=== PATIENT | female | born 1945 | race Caucasian/White ===

== ENCOUNTER → 2024-04-13 09:34 | Outpatient (REF) | payer MEDICARE, OTHER, SELFPAY | LOC: HWRAD 09:34 | PROVIDERS: ATTENDING PHYSICIAN Internal Medicine Critical Care Medicine; FAMILY PHYSICIAN Family Medicine | DX: J18.9 Pneumonia, unspecified organism (principal) | CPT/HCPCS: 71046 ==

== ENCOUNTER → 2024-08-10 10:37 | Outpatient (REF) | payer MEDICARE, OTHER, SELFPAY | LOC: HWRCS 10:37 | PROVIDERS: ATTENDING PHYSICIAN Internal Medicine Critical Care Medicine; FAMILY PHYSICIAN Family Medicine | DX: J47.9 Bronchiectasis, uncomplicated (principal); R09.02 Hypoxemia | CPT/HCPCS: 71250; 93306 ==

== ENCOUNTER → 2024-08-24 08:05 | Outpatient (REF) | payer MEDICARE, OTHER, SELFPAY ==
[2024-08-24 11:03] LABS: Glycohemoglobin (HgbA1c) 6.9 % (4.0-5.6)
[2024-08-24 11:20] LABS: ALT (SGPT) 10 U/L (0-35); AST (SGOT) 15 U/L (14-36); Albumin 3.6 g/dl (3.5-5.0); Alkaline Phosphatase 88 U/L (38-126); Blood Urea Nitrogen 22 mg/dl (7-17); Calcium 8.9 mg/dl (8.4-10.2); Carbon Dioxide 35 mmol/L (22-30); Chloride 94 mmol/L (98-107); Glucose 154 mg/dl (70-99); Potassium 3.8 mmol/L (3.5-5.1); Sodium 138 mmol/L (135-145); Total Bilirubin 0.6 mg/dl (0.2-1.3); Total Protein 6.4 g/dl (6.3-8.2); eGFR > 60.00
== END ==
LOC: HWLAB 08:05
PROVIDERS: ATTENDING PHYSICIAN Internal Medicine Endocrinology, Diabetes & Metabolism; FAMILY PHYSICIAN Family Medicine
DX: E11.9 Type 2 diabetes mellitus without complications (principal)
CPT/HCPCS: 36415; 80053; 83036

== ENCOUNTER 2024-09-21 22:28 | Inpatient (IN) | payer MEDICARE, OTHER, SELFPAY ==
--- NOTE | 2024-09-21 15:47 | ED.GENMED ---
ED Provider Triage
<Robert Ferrer PA-C - Last Filed: 09/21/24 15:48>
-
Patient seen by provider in Triage?: Seen in Triage
Attestation: A medical screening examination has been initiated by a qualified medical provider. Based on the assessment performed at this time, it has been determined that an emergent medical condition may exist and the patient has been informed
that further medical evaluation and possible additional diagnostic testing may be needed.
HPI: 78-year-old female with history of COPD has home oxygen but does not always use it now requiring 3 L. Family noticed increased work of breathing shortness of breath fatigue and generalized weakness. She notes general body aches as well not
anticoagulated temperature is 100.7
Putting labs for CBC CMP BNP x-ray and test for COVID and flu
GENERAL: Alert , in no apparent distress
EYE: No visual abnormalities.
NECK: Trachea midline
ENT: No visible abnormalities.
LUNGS: No acute respiratory distress
NEUROLOGICAL: Alert and oriented
SKIN: Skin intact. No visible changes.
MUSCULOSKELETAL: Moving extremities normally
PSYCH: Normal and appropriate interaction.
This is a medical evaluation conducted in person to initiate diagnostic evaluation and provide initial therapeutics. Please see further documentation by the treating clinician.
History of Present Illness
<Robert Ferrer PA-C - Last Filed: 09/21/24 15:48>
General
Chief Complaint: Breathing Problem
Time Seen by Provider: 09/21/24 19:12
<Jim Pollack MD - Last Filed: 09/22/24 02:57>
General
Source: patient
Exam Limitations: none
Nursing documentation reviewed up to this point in time: agreed with
History of Present Illness
History of Present Illness:
Patient with history of COPD, who utilizes oxygen during any exertional activities at home, presents to ED from home secondary to increased work of breathing along with confusion, noted by her when he came back home this afternoon. Spouse
states that she was at her baseline health when he left the house 3 hours prior. Patient does have chronic cough as well as frequent pneumonia hospitalization. Upon arrival, patient is found to be febrile, which patient and spouse were not aware
of. Denies nausea or vomiting. Denies diarrhea. Denies chest pain. Denies headache. Denies dizziness. Denies sore throat. Denies recent change in medications or diet. Denies recent travel or surgery. Denies back pain.
Past History
<Robert Ferrer PA-C - Last Filed: 09/21/24 15:48>
Past History
ED Past Medical History: Asthma, COPD, HTN, NIDDM and Other (pneumonia)
ED Past Surgical History: Other (lap band bariatric surgery)
Patient has exhibited threatening behavior?: No
Social History
Tobacco: Non-smoker
Alcohol: None
Personal:
Living: with family
Employment: Not employed
Family History
Family History: Diabetes
Review of Systems
<Jim Pollack MD - Last Filed: 09/22/24 02:57>
Review of Systems
Allergies reviewed?: Yes
All Other Systems: ROS reviewed and negative except as documented in HPI and ROS
Constitutional: Reports fever
EENT: Reports no symptoms
Respiratory: Reports cough and trouble breathing
Cardiac: Reports no symptoms; Denies chest pain
ABD/GI: Reports no symptoms; Denies vomiting or diarrhea
: Reports no symptoms
Musculoskeletal: Reports no symptoms
Skin: Reports no symptoms
Neurological: Reports no symptoms
Phy Exam
<Jim Pollack MD - Last Filed: 09/22/24 02:57>
Physical Exam
Physical Exam:
Physical Exam
General: mild distress, not acutely ill. afebrile
Head: nc/at. eomi
Neck: supple. normal range of motion.
Heart: s1/s2 regular rate and rhythm, no murmur. equal radial pulses.
Lungs: mild respiratory distress. diffuse wheezing bilaterally
Abdomen: normal bowel sounds. not tender.
Neuro: alert and oriented x 3. no focal neurological deficits
Skin: no rash
Psychiatric: well kept. interactive and cooperative
Extremities: no edema. no calf tenderness.
Scores
<Jim Pollack MD - Last Filed: 09/22/24 02:57>
Heart Failure Risk
Heart Failure Risk Score: Not Applicable
Course
<Robert Ferrer PA-C - Last Filed: 09/21/24 15:48>
Orders/Labs/Results
Orders:
Orders
09/21/24 15:46
CR Chest - 2 Views Urgent
Comment:
Reason For Exam: sob
09/21/24 15:47
Electrocardiogram (*1) Urgent
Reason for Study: Shortness of Breath
EKG- Treatment ONCE
09/21/24 15:59
COVID-19 Antigen Urgent
Source: Nasal Swab
Complete Blood Count/With Diff Urgent
Comprehensive Metabolic Panel Urgent
Magnesium Urgent
Comment: ADD ON
NT-proBNP Urgent
Influenza A+B Rapid Molecular Urgent
[place] Source: Nasal Swab
Specimen Description:
09/21/24 19:42
0.9% Sodium Chloride 500 ml [Nss] 500 ml IV BOLUS
Acetaminophen [Tylenol] 650 mg PO NOW STA
Dexamethasone Sod Phosphate [Decadron] 6 mg IV NOW STA
Ipratropium/Albuterol Sulfate [Duoneb] 3 ml INH R NOW STA
09/21/24 19:43
Add On- LAB Urgent
Tests Added?: magnesium
09/21/24 19:49
Lactate Level [Lactic Acid] Urgent
Blood Culture Q30M
[place] Source: Blood/Venous
Specimen Description:
Blood Culture Q30M
[place] Source: Blood/Venous
Specimen Description:
09/21/24 19:58
Arterial Blood Gas Urgent
%Oxygen/Room Air: 89
09/21/24 19:59
Azithromycin 500 mg/250 ml [Zithromax Infusion] 500 mg in 250 ml IV NOW
CefTRIAXone [Rocephin] 1,000 mg IV NOW STA
09/21/24 20:22
Sterile Water [Sterile Water For Injection] 10 ml .ROUTE .STK-MED ONE
09/21/24 21:20
Albuterol Sulfate [Albuterol Sulfate Inhalant Solution] See Protocol INH R ONCE STA
Dosage in mg/hr: 10 mg/hr (2 mL/hr)
Duration of continuous nebulizer in hours: 4
Total dose delivered in m mg
Volume of Albuterol to add to nebulizer: 8 mL
Add saline for total nebulizer volume of: 100 mL
09/21/24 21:23
Admit/Transfer Patient As Directed
Co-Sign Provider:
Level of Care: Inpatient admission
Assign to:: IMU- Intermediate Care
Physician / Group: hospitalist
Diagnosis: acute respiratory distress
Reason for Hospitalization: pneumonia with respiratory distress
Expected length of stay greater than two midnights?: Yes
ELOS- Estimated Length of Stay in days: 2
I certify the patient meets the requirements for IP care: Yes
PRN Pain Medication Management As Directed
May give lesser potent ordered pain med per pt: Yes
preference::
Protocol:: Medication orders for pain may be administered in a
manner that supports deferring to patient preference
when the pt is:
- Requesting an ordered lesser potent pain medication.
Least to most potent pain medications are defined
as: acetaminophen < NSAID < tramadol < opioids
(morphine, oxycodone, hydromorphone).
- Requesting a lesser dose of the same medication IF
ORDERED.
- Requesting a less intrusive route of administration
if both routes are prescribed by the provider (PO <
IV).
Cpap [RESP] Urgent
Patient to use own unit?: No
Set Pressure (cm H2O): 8
Oxygen Liter Flow: 4
09/21/24 21:25
Code Status As Directed
Resuscitation Status: Full Code
09/21/24 22:00
Flush (0.9% Sodium Chloride) [Flush (Nss)] See Dose Instructions IV PER PROTOCOL
Abnormal Lab Results
09/21/24 09/21/24
15:59 19:58
WBC 26.0 H 10^3/uL
(4.8-10.8)
Hgb 11.3 L g/dL
(12.0-16.0)
Hct 35.8 L %
(37.0-47.0)
MCH 26.0 L pg
(27.0-31.0)
MCHC 31.6 L g/dL
(33.0-37.0)
Abs Immat Gran (auto) 0.2 H 10^3/uL
(0-0.05)
Absolute Neuts (auto) 23.7 H 10^3/uL
(1.4-6.5)
Absolute Monos (auto) 0.8 H 10^3/uL
(0.1-0.6)
Immature Gran % 0.7 H %
(0-0.5)
Neutrophils % 91.2 H %
(42.2-75.2)
Lymphocytes % 4.8 L %
(20.5-51.1)
pCO2 41 H mmHg
(32-35)
pO2 117 H mmHg
(83-108)
HCO3 28.5 H mmol/L
(21-28)
ABG O2 Sat (Measured) 98.2 H %
(94-98)
Sodium 133 L mmol/L
(135-145)
Chloride 94 L mmol/L
(98-107)
BUN 26 H mg/dl
(7-17)
Glucose 170 H mg/dl
(70-99)
09/21/24 15:59
09/21/24 15:59
Vital Signs
Initial and Last Documented VS:
Initial Vital Signs
Temp Pulse Resp Pulse Ox
100.7 F H 115 18 96
09/21/24 15:45 09/21/24 15:45 09/21/24 15:45 09/21/24 15:45
Last Documented Vital Signs
Temp Pulse Resp BP Pulse Ox
100.7 F H 105 15 98/55 99
09/21/24 15:45 09/22/24 01:45 09/22/24 01:45 09/22/24 00:01 09/22/24 01:30
<Jim Pollack MD - Last Filed: 09/22/24 02:57>
Orders/Labs/Results
Orders:
Orders
09/21/24 15:46
CR Chest - 2 Views Urgent
Comment:
Reason For Exam: sob
09/21/24 15:47
Electrocardiogram (*1) Urgent
Reason for Study: Shortness of Breath
EKG- Treatment ONCE
09/21/24 15:59
COVID-19 Antigen Urgent
Source: Nasal Swab
Complete Blood Count/With Diff Urgent
Comprehensive Metabolic Panel Urgent
Magnesium Urgent
Comment: ADD ON
NT-proBNP Urgent
Influenza A+B Rapid Molecular Urgent
[place] Source: Nasal Swab
Specimen Description:
09/21/24 19:42
0.9% Sodium Chloride 500 ml [Nss] 500 ml IV BOLUS
Acetaminophen [Tylenol] 650 mg PO NOW STA
Dexamethasone Sod Phosphate [Decadron] 6 mg IV NOW STA
Ipratropium/Albuterol Sulfate [Duoneb] 3 ml INH R NOW STA
09/21/24 19:43
Add On- LAB Urgent
Tests Added?: magnesium
09/21/24 19:49
Lactate Level [Lactic Acid] Urgent
Blood Culture Q30M
[place] Source: Blood/Venous
Specimen Description:
Blood Culture Q30M
[place] Source: Blood/Venous
Specimen Description:
09/21/24 19:58
Arterial Blood Gas Urgent
%Oxygen/Room Air: 89
09/21/24 19:59
Azithromycin 500 mg/250 ml [Zithromax Infusion] 500 mg in 250 ml IV NOW
CefTRIAXone [Rocephin] 1,000 mg IV NOW STA
09/21/24 20:22
Sterile Water [Sterile Water For Injection] 10 ml .ROUTE .STK-MED ONE
09/21/24 21:20
Albuterol Sulfate [Albuterol Sulfate Inhalant Solution] See Protocol INH R ONCE STA
Dosage in mg/hr: 10 mg/hr (2 mL/hr)
Duration of continuous nebulizer in hours: 4
Total dose delivered in m mg
Volume of Albuterol to add to nebulizer: 8 mL
Add saline for total nebulizer volume of: 100 mL
09/21/24 21:23
Admit/Transfer Patient As Directed
Co-Sign Provider:
Level of Care: Inpatient admission
Assign to:: IMU- Intermediate Care
Physician / Group: hospitalist
Diagnosis: acute respiratory distress
Reason for Hospitalization: pneumonia with respiratory distress
Expected length of stay greater than two midnights?: Yes
ELOS- Estimated Length of Stay in days: 2
I certify the patient meets the requirements for IP care: Yes
PRN Pain Medication Management As Directed
May give lesser potent ordered pain med per pt: Yes
preference::
Protocol:: Medication orders for pain may be administered in a
manner that supports deferring to patient preference
when the pt is:
- Requesting an ordered lesser potent pain medication.
Least to most potent pain medications are defined
as: acetaminophen < NSAID < tramadol < opioids
(morphine, oxycodone, hydromorphone).
- Requesting a lesser dose of the same medication IF
ORDERED.
- Requesting a less intrusive route of administration
if both routes are prescribed by the provider (PO <
IV).
Cpap [RESP] Urgent
Patient to use own unit?: No
Set Pressure (cm H2O): 8
Oxygen Liter Flow: 4
09/21/24 21:25
Code Status As Directed
Resuscitation Status: Full Code
09/21/24 22:00
Flush (0.9% Sodium Chloride) [Flush (Nss)] See Dose Instructions IV PER PROTOCOL
Abnormal Lab Results
09/21/24 09/21/24
15:59 19:58
WBC 26.0 H 10^3/uL
(4.8-10.8)
Hgb 11.3 L g/dL
(12.0-16.0)
Hct 35.8 L %
(37.0-47.0)
MCH 26.0 L pg
(27.0-31.0)
MCHC 31.6 L g/dL
(33.0-37.0)
Abs Immat Gran (auto) 0.2 H 10^3/uL
(0-0.05)
Absolute Neuts (auto) 23.7 H 10^3/uL
(1.4-6.5)
Absolute Monos (auto) 0.8 H 10^3/uL
(0.1-0.6)
Immature Gran % 0.7 H %
(0-0.5)
Neutrophils % 91.2 H %
(42.2-75.2)
Lymphocytes % 4.8 L %
(20.5-51.1)
pCO2 41 H mmHg
(32-35)
pO2 117 H mmHg
(83-108)
HCO3 28.5 H mmol/L
(21-28)
ABG O2 Sat (Measured) 98.2 H %
(94-98)
Sodium 133 L mmol/L
(135-145)
Chloride 94 L mmol/L
(98-107)
BUN 26 H mg/dl
(7-17)
Glucose 170 H mg/dl
(70-99)
09/21/24 15:59
09/21/24 15:59
Vital Signs
Initial and Last Documented VS:
Initial Vital Signs
Temp Pulse Resp Pulse Ox
100.7 F H 115 18 96
09/21/24 15:45 09/21/24 15:45 09/21/24 15:45 09/21/24 15:45
Last Documented Vital Signs
Temp Pulse Resp BP Pulse Ox
100.7 F H 105 15 98/55 99
09/21/24 15:45 09/22/24 01:45 09/22/24 01:45 09/22/24 00:01 09/22/24 01:30
<Jim Pollack MD - Last Filed: 09/22/24 02:57>
MDM/Problems Addressed
MDM/Problems Addressed:
History, exam, and chest x-ray concerning for sepsis secondary to pneumonia. In light of patient's mental status change, difficulty exclude potential hypercapnia. As such, earlier blood gas ordered.
Antibiotics ordered. Blood culture pending. COVID and flu negative.
<Jim Pollack MD - Last Filed: 09/22/24 02:57>
*Critical Care Note
Total Time (30-74mins, 75-104mins- exclusive of procedures): Not Applicable
ED Attending Note
<Robert Ferrer PA-C - Last Filed: 09/21/24 15:48>
-
Portions of this chart may have been created with voice recognition software.� Occasional wrong word or��sound alike� substitutions may have occurred due to the inherent limitations of voice recognition software.
Discharge Plan
Departure
Patient Disposition: Admit
Date of Disposition: 09/21/24
Time of Disposition: 20:05
Admit to: Telemetry
Presentation/result/management discussed w/ accepting MD/DO: Hospitalist
Discharge Problem:
Sepsis, Pneumonia
Interventions
Interventions:
*Risk Screen - Suicide Last Done: 09/21/24 15:47
*General Assessment Last Done: 09/22/24 00:51
*Neglect/Abuse Screening Last Done: 09/21/24 15:47
ED- Fall Risk Assessment Last Done: 09/22/24 01:50
ED- Cardiac Assessment Last Done: 09/21/24 19:30
ED- Pulmonary Assessment Last Done: 09/21/24 19:30
[2024-09-21 16:21] LABS: Hematocrit 35.8 % (37.0-47.0); Hemoglobin 11.3 g/dL (12.0-16.0); Mean Corp Hgb Conc. 31.6 g/dL (33.0-37.0); Mean Corpuscular Volume 82.5 fL (81.0-99.0); Mean Platelet Volume 8.4 fL (7.4-10.4); Platelet Count 334 10^3/uL (130-400); Red Blood Cell Count 4.34 10^6/uL (4.20-5.40); Red Cell Dist. Width 13.8 % (11.5-14.5)
[2024-09-21 16:38] LABS: % Basophils 0.2 % (0-2); % Eosinophils 0.1 % (0-6); % Immature Granulocytes 0.7 % (0-0.5); % Lymphocytes 4.8 % (20.5-51.1); % Neutrophils 91.2 % (42.2-75.2); Absolute Basophils 0.1 10^3/uL (0-0.2); Absolute Immature Granulocytes 0.2 10^3/uL (0-0.05); Absolute Lymphocytes 1.2 10^3/uL (1.2-3.4); Absolute Monocytes 0.8 10^3/uL (0.1-0.6); Absolute Neutrophils 23.7 10^3/uL (1.4-6.5); Nucleated Red Blood Cells % 0 %
[2024-09-21 16:41] LABS: ALT (SGPT) 12 U/L (0-35); AST (SGOT) 19 U/L (14-36); Albumin 3.9 g/dl (3.5-5.0); Alkaline Phosphatase 97 U/L (38-126); Blood Urea Nitrogen 26 mg/dl (7-17); Calcium 8.8 mg/dl (8.4-10.2); Carbon Dioxide 30 mmol/L (22-30); Chloride 94 mmol/L (98-107); Glucose 170 mg/dl (70-99); Potassium 4.1 mmol/L (3.5-5.1); Sodium 133 mmol/L (135-145); Total Bilirubin 0.9 mg/dl (0.2-1.3); Total Protein 6.8 g/dl (6.3-8.2); eGFR > 60.00
[2024-09-21 16:46] LABS: COVID-19 Antigen Negative (Negative)
[2024-09-21 16:49] LABS: NT-proBNP 449 pg/ml
[2024-09-21 19:25] VITALS: BP 119/59
[2024-09-21 20:00] VITALS: BP 117/48
[2024-09-21 20:03] LABS: B.E. 4.1 mmol/L; HCO3 28.5 mmol/L (21-28); O2 Saturation % 98.2 % (94-98); PCO2 41 mmHg (32-35); PO2 117 mmHg (83-108); pH 7.45 (7.35-7.45)
[2024-09-21 20:11] VITALS: BP 135/56
[2024-09-21 20:14] LABS: Magnesium 1.7 mg/dl (1.6-2.3)
[2024-09-21 20:29] LABS: Lactic Acid 1.5 mmol/L (0.7-2.0)
[2024-09-21] MEDS: DECADRON 6 MG IV (20:35)
[2024-09-21] MEDS: TYLENOL 650 MG PO (20:35)
[2024-09-21] MEDS: DUONEB 3 ML INH (20:35)
[2024-09-21] MEDS: ROCEPHIN 1000 MG IV (20:36)
[2024-09-21] MEDS: ZITHROMAX INFUSION 250 IV (20:36)
[2024-09-21] MEDS: NSS 500 IV (20:36)
[2024-09-21 21:01] VITALS: BP 164/104
--- NOTE | 2024-09-21 21:03 | HPS.HSE ---
Family Physician
-
Family Physician: Stacia Rodgers
Chief Complaint
-
Shortness of breath
History of Present Illness
This is a 78-year-old female with past medical history of asthma on intermittent home O2, diabetes, hypertension, history of cervical cancer, sleep apnea on CPAP, prior admissions for Klebsiella pneumonia as well as strep pneumonia presenting to the
emergency department with acute worsening shortness of breath.
Per family patient been in usual state of health up on 2 today. Family noticed increased work of breathing, shortness of breath and fatigue as well as generalized weakness. She was not coughing. She reports generalized bodyaches.
No known sick contacts. Appears to have a Tmax of 100.7 at home.
Patient unable to give much additional history. No history of DVT PE, no recent travels or prolonged immobilization.
In the emergency department patient had a temp of report 7. Low blood pressure readings have been taking. She was tachycardic to 115. She is satting 96% on 3 L. ECG shows sinus tachycardia without any acute ST or T wave changes. Chest x-ray
shows a right lower lobe infiltrate. COVID test negative, influenza test negative, white count was 26, hemoglobin and platelets were normal. ABG shows a pH of 7.45, pCO2 41 and a bicarb of 28. Electrolytes were unremarkable. BUN/creatinine was
stable.
Medical History
Past Medical History
Past Medical History: Reports Asthma, Cancer (History of cervical cancer), HTN, NIDDM and Other (Sleep apnea on CPAP daytime at night)
Past Surgical History: Reports Other
Additional Past Surgical History:
Surgical History hysterectomy
Surgical History R/L KNEE SURGERY
Surgical History BACK PAIN SURGERY METAL PLATE
Surgical History TUMMY TUCK
Surgical History gastic bypass
Surgical History [place] lap band removal 11/2020
Social History
Tobacco: Non-smoker
Alcohol: None
Drug: None
Personal:
Living: With Family
Family History
Family History: Not pertinent
Allergies / Home Medications
Allergies reflects when Allergies were last updated in [facility].
Home Medications with original date entered in [facility]
Allergy/Medication List:
Allergies
Allergy/AdvReac Type Severity Reaction Status Date / Time
lorazepam AdvReac Unknown Verified 09/21/24 15:47
environmental Allergy triggers Uncoded 09/21/24 15:47
asthma
red dots Allergy redness Uncoded 09/21/24 15:47
Home Medications
guaifenesin 1,200 mg tablet, extended release 12 hr (Mucinex) 1,200 mg PO Q12H Congestion 10/29/15
montelukast 10 mg tablet 10 mg PO QPM Allergies 10/29/15
multivitamin with folic acid 400 mcg tablet (Tab-A-Mariah) 1 tab PO DAILY Supplement 08/07/16
omeprazole 20 mg-sodium bicarbonate 1.1 gram capsule (Zegerid) 1 cap PO DAILY Gastrointestinal issue 08/07/16
losartan 50 mg tablet 100 mg PO DAILY Blood pressure 05/10/17
L.acidoph,paracasei,B.animalis 10 billion cell capsule 1 ea PO BID Supplement 07/01/19
aspirin 81 mg tablet,delayed release (Adult Aspirin Regimen) 81 mg PO DAILY Blood clot prevention/tx 07/01/19
benzonatate 100 mg capsule 100 mg PO TIDPRN PRN cough 07/01/19
cinnamon bark 500 mg capsule (Cinnamon) 1,000 mg PO BID Supplement 07/01/19
insulin detemir U-100 100 unit/mL (3 mL) subcutaneous pen (Levemir FlexTouch U-100 Insulin) 12 unit SC DAILY Diabetes 07/01/19
oxybutynin chloride 10 mg tablet,extended release 24 hr (Ditropan XL) 15 mg PO DAILY Urinary issue 07/01/19
budesonide 0.5 mg/2 mL suspension for nebulization (Pulmicort) 0.5 mg IH BID Lung/breathing issues 11/06/20
calcium 250 mg (as phosphate)-vit D3 5 mcg (200 unit) chewable tablet 1 ea PO BID Supplement 11/06/20
hydrochlorothiazide 25 mg tablet 25 mg PO DAILY Blood pressure 11/07/20
hydrocodone 5 mg-acetaminophen 325 mg tablet 0.5 tab PO BIDPRN PRN back pain 11/07/20
umeclidinium 62.5 mcg/actuation blister powder for inhalation (Incruse Ellipta) 62.5 mcg inhalation DAILY Lung/breathing issues 11/07/20
albuterol sulfate 1.25 mg/3 mL solution for nebulization 1.25 mg (3 mL) inhalation TID ##1 11/09/20
cefdinir 300 mg capsule 300 mg PO Q12 #14 caps 11/09/20
insulin aspart U-100 100 unit/mL (3 mL) subcutaneous pen (Novolog FlexPen U-100 Insulin aspart) 0 units (0 mL) SC AC 11/09/20
prednisone 10 mg tablet 10 mg PO .TAPER #100 tabs 11/09/20
Review of Systems
-
Unable to obtain full review of systems at this time due to: Acuity
Physical Exam
Vital Signs
Vital Signs
Temp Pulse Resp Pulse Ox
100.7 F H 115 18 96
09/21/24 15:45 09/21/24 15:45 09/21/24 15:45 09/21/24 15:45
Physical Exam
General: Well Developed, Well Nourished and Respiratory Distress
HEENT: NormoCephalic, Anicteric, Moist mucous membranes, Atraumatic, PERRLA and Oxygen
Respiratory: Wheezes and Accessory Resp Muscle Use
Cardiac: S1/S2, Regular Rhythm and Tachycardia
Breast: Deferred by me
GI: Soft, Non Tender, Non Distended and Normal Bowel Sounds
Rectal: Deferred by Provider
Genito-urinary: Deferred by me
Musculoskeletal: No Clubbing, No Cyanosis and No Edema
Skin: Warm
Neuro: AO x 3
Psych: Calm
Laboratory Results
-
09/21/24 15:59
09/21/24 15:59
Laboratory Results
pH 7.45 (7.35-7.45) 09/21/24 19:58
pCO2 41 mmHg (32-35) H 09/21/24 19:58
pO2 117 mmHg (83-108) H 09/21/24 19:58
HCO3 28.5 mmol/L (21-28) H 09/21/24 19:58
Lactic Acid 1.5 mmol/L (0.7-2.0) 09/21/24 19:49
Total Bilirubin 0.9 mg/dl (0.2-1.3) 09/21/24 15:59
AST 19 U/L (14-36) 09/21/24 15:59
ALT 12 U/L (0-35) 09/21/24 15:59
Alkaline Phosphatase 97 U/L (38-126) 09/21/24 15:59
Data Reviewed
-
Diagnostic Radiology: Image Personally Visualized and interpreted
Medical Tests (Nuc Med, Echo, EKG etc): Image Personally Visualized and interpreted
Lab Data: Labs Reviewed by me
Old Records: Reviewed
Impression/Plan
-
IMPRESSION:
78 y.o female with h/o asthma presenting to ED with shortness of breath, found to be hypoxic, has RLL PNA and leukocytosis, Fever to 100.7. C/W pneumonia with respiratory failure and asthmatic bronchitis
PLAN:
1. PNA - High risk of decompensation, high work of breathing
- admit to IMU
- blood cultures sent (h/o klebsiella, strep pneumo)
- check urine strep and legionella ag
- check sputum cx
- IV ceftriaxone/azithromycin
- supplemental oxygen
2. Asthma exacerbation/asthmatic bronchitis
- abx as above
- continous nebs x 1
- albuterol 2 prn
- solumedrol 40 q 6
- pulmonary consult
continuue cpap routine
3. DM II -
- sliding scale insulin
- lantus 10 hs
4 HTN
- hold hctz
- continue losatan
DVT PPX lovenox sq
Code status - full code
--- NOTE | 2024-09-21 21:11 | EDRN ---
When this RN was in another pt.'s room administering blood transfusion, admitting came to this RN, reporting that pt. had self-removed her IV. Assisting RN to bedside, applied bandage.
[2024-09-21 21:34] VITALS: BP 110/56
[2024-09-21 22:00] VITALS: BP 95/57
[2024-09-21] MEDS: [UNRECOGNIZED DRUG - OTHER] 10 MG INH (22:34)
[2024-09-22] VITALS (12 sets, daily range): BP systolic 98–166; BP diastolic 55–77; PULSE 88–123; O2SAT 87; BMI 32.8; BMI 31.3
[2024-09-22 05:01] LABS: Blood Urea Nitrogen 27 mg/dl (7-17); Calcium 8.7 mg/dl (8.4-10.2); Carbon Dioxide 25 mmol/L (22-30); Chloride 98 mmol/L (98-107); Estimated Creatinine Clearance 53 ml/min; Glucose 304 mg/dl (70-99); Potassium 3.8 mmol/L (3.5-5.1); Sodium 137 mmol/L (135-145); eGFR > 60.00
[2024-09-22 05:11] LABS: Hematocrit 33.8 % (37.0-47.0); Hemoglobin 10.9 g/dL (12.0-16.0); Mean Corp Hgb Conc. 32.2 g/dL (33.0-37.0); Mean Corpuscular Hgb 26.3 pg (27.0-31.0); Mean Corpuscular Volume 81.6 fL (81.0-99.0); Mean Platelet Volume 8.6 fL (7.4-10.4); Platelet Count 238 10^3/uL (130-400); Red Blood Cell Count 4.14 10^6/uL (4.20-5.40); Red Cell Dist. Width 14.1 % (11.5-14.5); White Blood Cell Count 23.9 10^3/uL (4.8-10.8)
[2024-09-22] MEDS: SOLU-MEDROL PF 40 MG IV ×2 (06:16→11:54)
[2024-09-22] MEDS: SPIRIVA RESPIMAT 2.5 MCG 2 PUFF INH (07:11)
[2024-09-22] MEDS: COZAAR 100 MG PO (09:04)
[2024-09-22] MEDS: PROTONIX 40 MG PO (09:05)
[2024-09-22] MEDS: DITROPAN 5 MG PO ×3 (09:05→21:00)
[2024-09-22] MEDS: ASPIR LOW (ENTERIC COATED) 81 MG PO (09:05)
--- NOTE | 2024-09-22 09:06 | CON.PUL ---
Consultation
Consultation Request
Date/Time Consultation Requested: 09/22/2024334
Date/Time Consultation Performed: 09/22/2024854
Requesting Provider: Dr. Crouch
Performing Provider: Dr. Wang
Reason for Consultation: SOB/Hypoxia
Medical History
-
Chief Complaint: SOB + weakness
History of Present Illness:
78-year-old female non-smoker with a past medical history of asthma, recurrent pneumonia, hiatal hernia, history of DARIAN noncompliant with CPAP, ILD with bronchiectasis and patchy GGO, bilateral pulmonary nodules, history of laparoscopic gastric
banding s/p removal in November 2020 at [facility], personal history of COVID-19 (03/2022) s/p Paxlovid, GERD, DM type II, history of hayfever and hypertension who presents with shortness of breath and weakness. Patient was in her usual state of health up
until the morning of ER arrival and she had worsened shortness of breath, work of breathing and fatigue. She was not coughing although she did have generalized bodyaches. In the ER she was febrile to 100.7 �F, tachycardic to 115 bpm, breathing at
18 breaths/min, BP 119/59 and saturating 96% on 3 L/min. Initial labs were significant for leukocytosis to 26, Hb 11.3, serum sodium 133, proBNP 449, COVID antigen negative and flu swab also negative. CXR showed a right lower lobe opacification
with concern for loculated small pleural effusion versus atelectasis. She was given Tylenol, Decadron, DuoNebs, ceftriaxone/Zithromax and IVF with 500 cc of NS 0.9%. She was admitted to the IMU and pulmonary service consulted for additional
management/recommendations.
When I saw her she was resting in bed, on 3 L/min, saturating 97% with heart rate 104 and BP 155/78. She currently says her cough and shortness of breath are at baseline. She currently denies shortness of breath at rest. Also denies chest pain,
BRITO, nausea, fevers or chills. She says she has been having knee pain on both legs off and on for the last month, and it has been also happening for the last 2 days although she currently says it is currently resolved.
Patient follows with us in the [facility] office with last visit on 07/06/[address] Chi -last visit on 07/06/2024. She is on Incruse elliptica, budesonide twice a day, Singulair and albuterol. She previously had used vest therapy due to history
of bronchiectasis but had not been compliant with this. Has a history of recurrent pneumonia with history of Klebsiella pneumonia and streptococcal pneumonia. Also has a history of suspected chronic aspiration and was previously related to her
Lap-Band which has subsequently been removed in November 2020 at [facility]. She does have a history of DARIAN which was severe however she had lost about 60 pounds after her lap-band surgery and repeat home sleep study was negative. She
had been noncompliant with CPAP since July 2021, regardless. She is on nocturnal oxygen and 6 MWT showed she does not need O2 during the day. She was told to follow-up with our office in September 2024. She did have a CT chest ordered from "[facility], completed on 08/10/2024 showing slightly worsened right lower lobe bronchial wall thickening with mild traction bronchiectasis (also in RML), with stable bronchial thickening in the upper lobes with no significant change in
scattered/confluent regions of mild interlobular and intralobular interstitial thickening and GGO. Also multiple stable small pulmonary nodules and a large hiatal hernia, worsened compared to prior CT Chest in May 2020.
PMHx: Moderate persistent asthma, recurrent pneumonia with suspected chronic aspiration, chronic rhinitis, DARIAN noncompliant with CPAP since July 2021, ILD with stable bronchiectasis and patchy GGO, history of laparoscopic gastric banding s/p
removal in November 2020 at [facility], personal history of COVID-19 (March 2022) s/p Paxlovid, GERD, DM type II on insulin, history of cervical cancer, hypertension, hayfever and left hand arthritis
PSHx: Hysterectomy, right knee surgery, back surgery s/p metal plate, tummy tuck, gastric bypass, laparoscopic Lap-Band removal (11/2020)
Past Medical History
Past Medical History: Other (Above as per HPI)
Past Surgical History: Other (Above as per HPI)
Social History
Tobacco: Non-smoker
Alcohol: None
Drug: None
Personal:
Living: With Family
Family History
Family History: Diabetes (Mother), Hypertension (Father + sister) and Other (Father: Asthma)
Allergies / Home Medications
Allergies
Allergy/AdvReac Type Severity Reaction Status Date / Time
lorazepam AdvReac Unknown Verified 09/21/24 15:47
environmental Allergy triggers Uncoded 09/21/24 15:47
asthma
red dots Allergy redness Uncoded 09/21/24 15:47
Home Medications
�Medication �Instructions �Recorded �Confirmed �Last Taken �Type
guaifenesin 1,200 mg tablet, 1,200 mg PO Q12H Congestion 10/29/15 11/06/20 05/10/17 History
extended release 12 hr (Mucinex)
montelukast 10 mg tablet 10 mg PO QPM Allergies 10/29/15 11/06/20 05/09/17 History
multivitamin with folic acid 400 1 tab PO DAILY Supplement 08/07/16 11/06/20 05/09/17 History
mcg tablet (Tab-A-Mariah)
omeprazole 20 mg-sodium 1 cap PO DAILY Gastrointestinal 08/07/16 11/06/20 05/09/17 History
bicarbonate 1.1 gram capsule issue
(Zegerid)
losartan 50 mg tablet 100 mg PO DAILY Blood pressure 05/10/17 11/06/20 05/10/17 History
L.acidoph,paracasei,B.animalis 10 1 ea PO BID Supplement 07/01/19 11/06/20 Unknown History
billion cell capsule
aspirin 81 mg tablet,delayed 81 mg PO DAILY Blood clot 07/01/19 11/06/20 Unknown History
release (Adult Aspirin Regimen) prevention/tx
benzonatate 100 mg capsule 100 mg PO TIDPRN PRN cough 07/01/19 11/06/20 Unknown History
cinnamon bark 500 mg capsule 1,000 mg PO BID Supplement 07/01/19 11/06/20 Unknown History
(Cinnamon)
insulin detemir U-100 100 unit/mL 12 unit SC DAILY Diabetes 07/01/19 11/06/20 Unknown History
(3 mL) subcutaneous pen (Levemir
FlexTouch U-100 Insulin)
oxybutynin chloride 10 mg 15 mg PO DAILY Urinary issue 07/01/19 11/06/20 Unknown History
tablet,extended release 24 hr
(Ditropan XL)
budesonide 0.5 mg/2 mL suspension 0.5 mg IH BID Lung/breathing issues 11/06/20 11/07/20 Unknown History
for nebulization (Pulmicort)
calcium 250 mg (as phosphate)-vit 1 ea PO BID Supplement 11/06/20 11/06/20 Unknown History
D3 5 mcg (200 unit) chewable tablet
hydrochlorothiazide 25 mg tablet 25 mg PO DAILY Blood pressure 11/07/20 11/07/20 Unknown History
hydrocodone 5 mg-acetaminophen 325 0.5 tab PO BIDPRN PRN back pain 11/07/20 11/07/20 Unknown History
mg tablet
umeclidinium 62.5 mcg/actuation 62.5 mcg inhalation DAILY 11/07/20 11/07/20 Unknown History
blister powder for inhalation Lung/breathing issues
(Incruse Ellipta)
albuterol sulfate 1.25 mg/3 mL 1.25 mg (3 mL) inhalation TID ##1 11/09/20 Unknown Rx
solution for nebulization
cefdinir 300 mg capsule 300 mg PO Q12 #14 caps 11/09/20 Unknown Rx
insulin aspart U-100 100 unit/mL 0 units SC AC 11/09/20 Unknown Rx
(3 mL) subcutaneous pen (Novolog
FlexPen U-100 Insulin aspart)
prednisone 10 mg tablet 10 mg PO .TAPER #100 tabs 11/09/20 Unknown Rx
Review of Systems
-
History Source: Patient
All other systems: Negative unless noted
Vitals / Labs / Diagnostic Testing
Vital Signs
Temp Pulse Resp BP Pulse Ox
100.7 F H 108 24 156/77 99
09/21/24 15:45 09/22/24 07:16 09/22/24 07:16 09/22/24 06:45 09/22/24 07:18
Lab Data
09/22/24 04:30
09/22/24 04:30
Laboratory Results
09/21/24
19:58
pH 7.45
pCO2 41 H
pO2 117 H
HCO3 28.5 H
O2 Delivery Level
Microbiology
09/22/24 04:30 Urine Legionella Urinary Antigen - Final
Negative for Legionella pneumophila Serogroup 1 antigen.
A negative result does not rule out the possiblity of
Legionella infection due to other serogroups or species of
Legionella. Clinical correlation is recommended.
09/22/24 04:30 Urine Streptococcus pneumoniae Antigen (M - Final
Negative for Streptococcus pneumoniae antigen.
A negative result does not exclude infection with
Streptococcus pneumoniae. Clinical correlation is
recommended.
09/21/24 15:59 Nasal Swab Influenza Types A & B (BREN) - Final
Negative for Influenza A & B, NAAT
Negative results must be combined with clinical observations
and patient history.
Nucleic Acid Amplification test (NAAT)performed on the
[employer] platform.
Diagnostic Testing:
Physical Exam
-
HEENT: Normocephalic and Anicteric
Cardiovascular: S1/S2 and Peripheral Edema (negative)
Respiratory: Wheeze (negative), Rales (Right base), Rhonchi (negative) and Non-Labored Respirations
GI: Soft, Non Distended, Non Tender and Normal Bowel Sounds
Neurology: AO x 3 and Tremors (negative)
Skin: Warm and Dry
General: Respiratory Distress (negative), Comfortable, Fever (negative) and Chills (negative)
Assessment
-
Assessment: 78-year-old female non-smoker with a past medical history of asthma, recurrent pneumonia, hiatal hernia, history of DARIAN noncompliant with CPAP, ILD with bronchiectasis and patchy GGO, bilateral pulmonary nodules, history of laparoscopic
gastric banding s/p removal in November 2020 at [facility], personal history of COVID-19 (03/2022) s/p Paxlovid, GERD, DM type II, history of hayfever and hypertension who presents with shortness of breath and weakness. Patient was in her usual state of
health up until the morning of ER arrival and she had worsened shortness of breath, work of breathing and fatigue. She was not coughing although she did have generalized bodyaches. In the ER she was febrile to 100.7 �F, tachycardic to 115 bpm,
breathing at 18 breaths/min, BP 119/59 and saturating 96% on 3 L/min. Initial labs were significant for leukocytosis to 26, Hb 11.3, serum sodium 133, proBNP 449, COVID antigen negative and flu swab also negative. CXR showed a right lower lobe
opacification with concern for loculated small pleural effusion versus atelectasis. She was given Tylenol, Decadron, DuoNebs, ceftriaxone/Zithromax and IVF with 500 cc of NS 0.9%. She was admitted to the IMU and pulmonary service consulted for
additional management/recommendations.
Chronic conditions PERSONAL DEVELOPMENT COACH: Moderate persistent asthma, recurrent pneumonia with suspected chronic aspiration, chronic rhinitis, DARIAN noncompliant with CPAP since July 2021, ILD with stable bronchiectasis and patchy GGO, history of laparoscopic
gastric banding s/p removal in November 2020 at [facility], personal history of COVID-19 (March 2022) s/p Paxlovid, GERD, DM type II on insulin, history of cervical cancer, hypertension, hayfever and left hand arthritis
Impression:
#Acute respiratory failure with hypoxia due to CAP involving RML
#Acute asthma exacerbation due to above
#Leukocytosis
#Chronic anemia (has been anemic since 2007 with baseline Hb 9.5�11.5)
#DM type II c/b hyperglycemia
#Moderate sized hiatal hernia
#History of ILD with traction bronchiectasis and RML/RLL with bilateral patchy GGO
#Recurrent pneumonia with suspected chronic aspiration
#History of laparoscopic gastric banding s/p removal in November 2020 at [facility]
#Personal history of COVID-19 (03/2022) s/p Paxlovid
#GERD
#History of a fever
Plan:
- CXR shows a bandlike opacification in the right lower lobe, appears to be atelectasis to me, however differential also includes pneumonia versus pleural effusion
- CT chest obtained showing a consolidative opacity with bronchiectasis in the right middle lobe likely representing pneumonia --> would repeat imaging in 4-6 weeks to follow to resolution
- Continue broad-spectrum antibiotics, currently on ceftriaxone/Zithromax
- Follow-up blood cultures collected 09/21/2024 + respiratory culture checked today
- Trend WBC and monitor fever curve
- She takes Anoro at home however given her SOB and acute exacerbation, will hold long active inhalers and start Duonebs + budesonide; can resume Incruse upon discharge
- Change prn albuterol to prn DuoNebs fpr breakthrough symptoms
- Maintain SpO2 >90-94% with supplemental O2 and wean as tolerated --> check ambulatory pulse oximetry prior to discharge
- Incentive spirometer encouraged q1hr while awake
- Given her history of asthma with suspected exacerbation, continue with systemic steroids and wean as she clinically improves, currently on Solu-Medrol 40 mg IV q6hr
- While on high-dose steroids, maintain euglycemia with goal BG >100 and <180
- Mucolytics as needed, currently denies any difficulty expectorating and says her SOB + cough are at baseline
- Replete electrolytes with K>4, Mg>2
- Trend H/H and transfuse if needed to keep Hb>7g/dL; keep plt>20k, unless there is concern for bleeding then keep plt>50k
- DVT ppx: LMWH
Pulmonary service will continue to follow along. Will continue to follow-up with pulmonary office with Dr. Chi -last visit on 07/06/2024 with next visit arrange for 12/01/2024. Will move this appointment up given her acute exacerbation.
Data:
CXR 09/21/2024:
Probable small loculated right pleural effusion. New. This would better be evaluated by chest CT examination if indicated clinically.
CT chest without contrast 09/22/2024:
There is a new consolidation and bronchiectasis within the right middle lobe favored to represent pneumonia. Recommend follow-up to ensure resolution.
There are multifocal areas of groundglass opacities as well as numerous scattered solid nodules which appear overall similar to prior.
Moderate compression deformity of the T6 vertebral body with 3 mm retropulsion, unchanged from prior.
Moderate hiatal hernia.
Total time spent today was 57 minutes for this encounter. Time includes reviewing laboratory test/imaging results, reviewing pertinent medical records, obtaining and reviewing medical history, performing an appropriate exam, ordering medications,
tests and procedures. Time also includes documentation of this encounter, coordinating patient care and communicating with other healthcare professionals. Total time does not include separately billed tests performed on this date of service.
[2024-09-22 09:36] LABS: Glucose - Point of Care 296 mg/dl (70-99)
[2024-09-22] MEDS: LANTUS 0.12 UNITS SC (09:37)
[2024-09-22] MEDS: NOVOLOG FLEXPEN-MODERATE RESISTANCE 5 UNITS SC (09:40)
[2024-09-22] MEDS: VENTOLIN NEBULES 2.5 MG INH (10:32)
[2024-09-22] MEDS: DUONEB INH (11:07)
[2024-09-22 13:32] LABS: Glucose - Point of Care 195 mg/dl (70-99)
[2024-09-22] MEDS: NOVOLOG FLEXPEN-MODERATE RESISTANCE 1 UNITS SC (13:32)
[2024-09-22] MEDS: DUONEB 3 ML INH ×2 (14:23→19:16)
--- NOTE | 2024-09-22 14:30 | W.PN.HOSP.TC ---
Today's Communication/Plan
-
Continue antibiotics
Reduce dose of steroids
CT chest
Acapella
Incentive spirometer
Assessment / Plan
Assessment / Plan
Gen-AAOx3, NAD
HEENT-NC, AT, anicteric, clear oral mm
Neck-supple
CV-reg, no M, +S1/S2
Lungs-bilateral expiratory wheezing
Abd-soft, NT, ND
Ext-no edema
Musculoskeletal-no cyanosis, clubbing, no effusion crepitus or tenderness over knees bilaterally
Skin-warm and dry
Neuro-grossly non-focal
Psych-calm, cooperative
Acute TME -likely due to sepsis, possible pneumonia. Mental status improving.
Sepsis due to community-acquired pneumonia -hemodynamically stable. Blood cultures pending. Continue current antibiotics. Check CT chest to evaluate for infiltrate and possible pleural effusion given limited findings on chest x-ray. Chest x-ray
shows a probable small loculated right pleural effusion.
Acute on chronic hypoxic respiratory failure -baseline 3 L nasal cannula oxygen at home. She does not appear to use it consistently according to what she reports to me. Currently stable on 3 L. Etiology of acute respiratory failure likely due to
sepsis, pneumonia, COPD exacerbation.
Acute COPD exacerbation -suspect due to pneumonia. Continue nebs, oxygen, steroids. Add Acapella, incentive spirometer.
Hyponatremia -present on admission. Resolved.
DM2 with hyperglycemia -steroid-induced hyperglycemia noted. Hemoglobin A1c 6.9% in August. At home she is on Tresiba 12 units daily, aspart insulin sliding scale.
In the hospital she is on glargine 12 units daily, moderate resistance NovoLog scale.
Essential hypertension -stable.
DARIAN
History of cervical cancer
Normocytic anemia -likely chronic. Follow-up as outpatient.
Obesity due to excess calories
Full code
Anticipated Discharge: > 48 hours
Subjective/Interval History
-
Date of Service: September 22, 2024
Patient seen and examined. Feeling better. Denies shortness of breath. Complaining of bilateral knee pain.
Objective Data
-
Labs:
Laboratory Results
09/22/24
04:30
WBC 23.9 H
Hgb 10.9 L
Hct 33.8 L
Plt Count 238 D
Sodium 137
Potassium 3.8
Chloride 98
Carbon Dioxide 25
BUN 27 H
Creatinine 0.8
Glucose 304 H
Calcium 8.7
Vital Signs:
Vital Signs
Temp Pulse Resp BP Pulse Ox
98.1 F 103 22 115/59 97
09/22/24 10:30 09/22/24 14:26 09/22/24 14:26 09/22/24 10:30 09/22/24 14:26
I&O
09/21/24 09/22/24 09/23/24
06:59 06:59 06:59
Output Total 700 / 700
Balance -700 / -700
Review of Systems
-
History Source: Patient
All other systems: Reviewed and negative
--- NOTE | 2024-09-22 17:07 | PTCARENOTE ---
1645 Pt received from the ED via stretcher. Pt ambulated from stretcher to standing scale and the to bed with assist of 1. Personal items and call light within reach. Pt oriented to staff and call light system. All needs met.
[2024-09-22 17:40] LABS: Glucose - Point of Care 236 mg/dl (70-99)
[2024-09-22] MEDS: SINGULAIR 10 MG PO (17:57)
[2024-09-22] MEDS: LOVENOX 40 MG SC (18:02)
[2024-09-22] MEDS: NOVOLOG FLEXPEN-MODERATE RESISTANCE 3 UNITS SC (18:31)
[2024-09-22] MEDS: PULMICORT 0.5 MG INH (19:16)
[2024-09-22] MEDS: ROCEPHIN 1000 MG IV (20:40)
[2024-09-22] MEDS: STERILE WATER FOR INJECTION 10 ML IV (20:40)
[2024-09-22] MEDS: ZITHROMAX INFUSION 250 IV (20:55)
[2024-09-22 22:06] LABS: Glucose - Point of Care 259 mg/dl (70-99)
[2024-09-23] VITALS (7 sets, daily range): BP systolic 126–151; BP diastolic 73–85; PULSE 111
[2024-09-23 07:09] LABS: Hematocrit 32.8 % (37.0-47.0); Hemoglobin 10.2 g/dL (12.0-16.0); Mean Corp Hgb Conc. 31.1 g/dL (33.0-37.0); Mean Corpuscular Volume 83.7 fL (81.0-99.0); Mean Platelet Volume 8.8 fL (7.4-10.4); Platelet Count 292 10^3/uL (130-400); Red Blood Cell Count 3.92 10^6/uL (4.20-5.40); Red Cell Dist. Width 14.2 % (11.5-14.5)
[2024-09-23 07:53] LABS: % Basophils 0.2 % (0-2); % Immature Granulocytes 1.1 % (0-0.5); % Lymphocytes 3.9 % (20.5-51.1); % Monocytes 2.5 % (1.7-9.3); % Neutrophils 92.3 % (42.2-75.2); Absolute Basophils 0.1 10^3/uL (0-0.2); Absolute Immature Granulocytes 0.3 10^3/uL (0-0.05); Absolute Lymphocytes 1.2 10^3/uL (1.2-3.4); Absolute Monocytes 0.8 10^3/uL (0.1-0.6); Absolute Neutrophils 28.6 10^3/uL (1.4-6.5); Nucleated Red Blood Cells % 0 %
[2024-09-23] MEDS: DUONEB 3 ML INH ×4 (07:53→20:45)
[2024-09-23] MEDS: PULMICORT 0.5 MG INH ×2 (07:53→20:45)
[2024-09-23 07:55] LABS: Glucose - Point of Care 145 mg/dl (70-99)
[2024-09-23] MEDS: NOVOLOG FLEXPEN-MODERATE RESISTANCE SC (08:12)
[2024-09-23] MEDS: DITROPAN 5 MG PO ×3 (08:17→21:20)
[2024-09-23] MEDS: ASPIR LOW (ENTERIC COATED) 81 MG PO (08:17)
[2024-09-23] MEDS: PROTONIX 40 MG PO (08:17)
[2024-09-23] MEDS: DELTASONE 50 MG PO (08:17)
[2024-09-23] MEDS: COZAAR 100 MG PO (08:17)
[2024-09-23] MEDS: LANTUS 0.12 UNITS SC (08:48)
--- NOTE | 2024-09-23 10:20 | W.PN.HOSP.TC ---
Today's Communication/Plan
-
Continue current care
Assessment / Plan
Assessment / Plan
Gen-AAOx3, NAD
HEENT-NC, AT, anicteric, clear oral mm
Neck-supple
CV-reg, no M, +S1/S2
Lungs-bilateral expiratory wheezing, Rales at the right base
Abd-soft, NT, ND
Ext-no edema
Musculoskeletal-no cyanosis, clubbing, no effusion crepitus or tenderness over knees bilaterally
Skin-warm and dry
Neuro-grossly non-focal
Psych-calm, cooperative
Acute TME -likely due to sepsis, possible pneumonia. Mental status improving.
Sepsis due to community-acquired pneumonia -hemodynamically stable. Blood cultures negative. Continue current antibiotics. CT chest confirms consolidation and bronchiectasis in the right middle lobe representing pneumonia. Multifocal areas of
ground glass opacities as well as numerous scattered solid nodules which appear overall similar to prior.
Leukocytosis persists, likely due to steroids. Afebrile.
Acute on chronic hypoxic respiratory failure -baseline 3 L nasal cannula oxygen at home. She does not appear to use it consistently according to what she reports to me. Currently stable on 3 L. Etiology of acute respiratory failure likely due to
sepsis, pneumonia, COPD exacerbation.
Acute COPD exacerbation -suspect due to pneumonia. Continue nebs, oxygen, steroids. Add Acapella, incentive spirometer. Wheezing slowly improving.
Hyponatremia -present on admission. Resolved.
DM2 with hyperglycemia -steroid-induced hyperglycemia noted. Hemoglobin A1c 6.9% in August. At home she is on Tresiba 12 units daily, aspart insulin sliding scale.
In the hospital she is on glargine 12 units daily, moderate resistance NovoLog scale.
Glucose 145 this morning.
Chronic T6 compression deformity -likely due to underlying osteoporosis.
Essential hypertension -stable.
DARIAN
History of cervical cancer
Normocytic anemia -likely chronic. Follow-up as outpatient.
Obesity due to excess calories
Full code
PT consult -Home PT versus rehab.
Anticipated Discharge: 24 - 48 hours
Subjective/Interval History
-
Date of Service: September 23, 2024
Patient seen and examined. Overall feeling better. No complaints.
Objective Data
-
Labs:
Laboratory Results
09/23/24
06:24
WBC 31.0 H
Hgb 10.2 L
Hct 32.8 L
Plt Count 292 D
Vital Signs:
Vital Signs
Temp Pulse Resp BP Pulse Ox
97.7 F 83 18 126/73 100
09/23/24 07:26 09/23/24 07:57 09/23/24 07:57 09/23/24 07:26 09/23/24 07:57
I&O
09/22/24 09/23/24 09/24/24
06:59 06:59 06:59
Intake Total 500 / 500
Output Total 700 / 700
Balance -200 / -200
Review of Systems
-
History Source: Patient
All other systems: Reviewed and negative
[2024-09-23 11:56] LABS: Glucose - Point of Care 203 mg/dl (70-99)
[2024-09-23] MEDS: NOVOLOG FLEXPEN-MODERATE RESISTANCE 3 UNITS SC ×2 (12:25→17:06)
--- NOTE | 2024-09-23 15:26 | CM ---
Patient seen at bedside. Patient stated that she lives with her and daughter in law helps. Patient lives in a one story home with home O2 and CPAP at home. Patient uncertain of provider. Patient PCP is Dr. Rodgers and she use the [facility] in
[place]. Patient gave up driving about a year ago. Patient plan is home with no needs CM will continue to follow for discharge planning needs.
Plan; home with no needs vs home with VN
--- NOTE | 2024-09-23 15:59 | W.PN.PUL3 ---
Today's Communication / Plan
-
Continue airway clearance
Continue antibiotics
Decrease prednisone to 20 mg
PT/OT, ambulate
Aspiration precautions
Assessment
-
Assessment: 78-year-old female non-smoker with a past medical history of asthma, recurrent pneumonia, hiatal hernia, history of DARIAN noncompliant with CPAP, ILD with bronchiectasis and patchy GGO, bilateral pulmonary nodules, history of laparoscopic
gastric banding s/p removal in November 2020 at [facility], personal history of COVID-19 (03/2022) s/p Paxlovid, GERD, DM type II, history of hayfever and hypertension who presents with shortness of breath and weakness. Patient was in her usual state of
health up until the morning of ER arrival and she had worsened shortness of breath, work of breathing and fatigue. She was not coughing although she did have generalized bodyaches. In the ER she was febrile to 100.7 �F, tachycardic to 115 bpm,
breathing at 18 breaths/min, BP 119/59 and saturating 96% on 3 L/min. Initial labs were significant for leukocytosis to 26, Hb 11.3, serum sodium 133, proBNP 449, COVID antigen negative and flu swab also negative. CXR showed a right lower lobe
opacification with concern for loculated small pleural effusion versus atelectasis. She was given Tylenol, Decadron, DuoNebs, ceftriaxone/Zithromax and IVF with 500 cc of NS 0.9%. She was admitted to the IMU and pulmonary service consulted for
additional management/recommendations.
Chronic conditions BOOK REVIEWER: Moderate persistent asthma, recurrent pneumonia with suspected chronic aspiration, chronic rhinitis, DARIAN noncompliant with CPAP since July 2021, ILD with stable bronchiectasis and patchy GGO, history of laparoscopic
gastric banding s/p removal in November 2020 at [facility], personal history of COVID-19 (March 2022) s/p Paxlovid, GERD, DM type II on insulin, history of cervical cancer, hypertension, hayfever and left hand arthritis
#Acute respiratory failure with hypoxia due to CAP involving RML
#Acute asthma exacerbation due to above
#Leukocytosis
#Chronic anemia (has been anemic since 2007 with baseline Hb 9.5�11.5)
#DM type II c/b hyperglycemia
#Moderate sized hiatal hernia
#History of ILD with traction bronchiectasis and RML/RLL with bilateral patchy GGO
#Recurrent pneumonia with suspected chronic aspiration
#History of laparoscopic gastric banding s/p removal in November 2020 at [facility]
#Personal history of COVID-19 (03/2022) s/p Paxlovid
#GERD
#History of a fever
Plan/recommendations:
At this time, patient appears to be objectively and subjectively improved
Seems tremulous, seems she may be agitated with steroids
She did tolerate the BiPAP 2 nights ago, feels that his current mask is more comfortable
CT chest consistent with right middle lobe pneumonia
Moving forward
Continue with ceftriaxone/azithromycin
Continue with airway clearance
Do not feel she needs steroids, will transition to 20 mg prednisone and taper slowly over the next 7 to 14 days
Steroids may be contributing to her side effects
Follow-up cultures
Nebulized therapy for now
DuoNebs, budesonide. Can resume outpatient regimen at time of discharge
Encourage airway clearance
PT/OT, ambulate
Head of bed elevated, aspiration precautions
DVT ppx: LMWH
Pulmonary service will continue to follow along. Will continue to follow-up with pulmonary office with Dr. Chi -last visit on 07/06/2024 with next visit arrange for 12/01/2024. Will move this appointment up given her acute exacerbation.
Data:
CXR 09/21/2024:
Probable small loculated right pleural effusion. New. This would better be evaluated by chest CT examination if indicated clinically.
CT chest without contrast 09/22/2024:
There is a new consolidation and bronchiectasis within the right middle lobe favored to represent pneumonia. Recommend follow-up to ensure resolution.
There are multifocal areas of groundglass opacities as well as numerous scattered solid nodules which appear overall similar to prior.
Moderate compression deformity of the T6 vertebral body with 3 mm retropulsion, unchanged from prior.
Moderate hiatal hernia.
Subjective Data
-
Date of Service:
Date of Service: September 23, 2024
Subjective:
Patient appears comfortable, sitting in chair. at bedside. Patient states she had a bad night, itchiness, restless leg. Denies chest pain, productive cough
Objective Data
Data Reviewed
Vital Signs / I&O / Oxygen:
Vital Signs
Temp Pulse Resp BP Pulse Ox
98.1 F 112 18 134/81 99
09/23/24 15:00 09/23/24 15:56 09/23/24 15:56 09/23/24 15:00 09/23/24 15:56
Intake and Output
09/22/24 09/23/24 09/24/24
06:59 06:59 06:59
Intake Total 500 / 500
Output Total 700 / 700
Balance -200 / -200
SaO2 99
Nasal Cannula flow liters per 3
minute
Physical Exam
General: Comfortable
HEENT: Normocephalic and Anicteric
Cardiovascular: S1-S2, Regular Rhythm, Murmur (n) and Rub (n)
Respiratory: Wheeze (n), Crackles (few), Rhonchi (few), Non-Labored Respirations and Stridor (n)
GI: Soft, Non Distended and Non Tender
Neurology: Awake, Alert and No Motor Deficits
Skin: Cyanosis (n), Jaundice (n), Rash (n) and Bruising (few)
Labs/Micro/Reports
Lab Data
09/23/24 06:24
09/22/24 04:30
Microbiology
09/21/24 19:49 Blood/Venous Blood Culture - Preliminary
No Growth in 24 hours- Final report to follow
09/21/24 19:49 Blood/Venous Blood Culture - Preliminary
No Growth in 24 hours- Final report to follow
09/22/24 09:01 Sputum Respiratory Culture - Final
09/22/24 09:01 Sputum Gram Stain - Final
09/22/24 04:30 Urine Legionella Urinary Antigen - Final
Negative for Legionella pneumophila Serogroup 1 antigen.
A negative result does not rule out the possiblity of
Legionella infection due to other serogroups or species of
Legionella. Clinical correlation is recommended.
09/22/24 04:30 Urine Streptococcus pneumoniae Antigen (M - Final
Negative for Streptococcus pneumoniae antigen.
A negative result does not exclude infection with
Streptococcus pneumoniae. Clinical correlation is
recommended.
09/21/24 15:59 Nasal Swab Influenza Types A & B (BREN) - Final
Negative for Influenza A & B, NAAT
Negative results must be combined with clinical observations
and patient history.
Nucleic Acid Amplification test (NAAT)performed on the
[employer] platform.
[2024-09-23 16:34] LABS: Glucose - Point of Care 227 mg/dl (70-99)
[2024-09-23] MEDS: LOVENOX 40 MG SC (17:02)
[2024-09-23] MEDS: SINGULAIR 10 MG PO (17:02)
[2024-09-23] MEDS: STERILE WATER FOR INJECTION 10 ML IV (20:03)
[2024-09-23] MEDS: ZITHROMAX INFUSION 250 IV (20:03)
[2024-09-23] MEDS: ROCEPHIN 1000 MG IV (20:03)
[2024-09-23 21:13] LABS: Glucose - Point of Care 166 mg/dl (70-99)
[2024-09-24 03:15] VITALS: BP 119/64
[2024-09-24 05:49] LABS: % Basophils 0.1 % (0-2); % Immature Granulocytes 0.5 % (0-0.5); % Lymphocytes 11.7 % (20.5-51.1); % Neutrophils 82.7 % (42.2-75.2); Absolute Immature Granulocytes 0.1 10^3/uL (0-0.05); Absolute Lymphocytes 2.4 10^3/uL (1.2-3.4); Absolute Neutrophils 16.6 10^3/uL (1.4-6.5); Hematocrit 29.9 % (37.0-47.0); Hemoglobin 9.3 g/dL (12.0-16.0); Mean Corp Hgb Conc. 31.1 g/dL (33.0-37.0); Mean Corpuscular Hgb 26.1 pg (27.0-31.0); Mean Corpuscular Volume 83.8 fL (81.0-99.0); Mean Platelet Volume 8.5 fL (7.4-10.4); Nucleated Red Blood Cells % 0 %; Platelet Count 304 10^3/uL (130-400); Red Blood Cell Count 3.57 10^6/uL (4.20-5.40); Red Cell Dist. Width 14.2 % (11.5-14.5); White Blood Cell Count 20.1 10^3/uL (4.8-10.8)
[2024-09-24 07:05] VITALS: BP 116/65
[2024-09-24 07:41] LABS: Glucose - Point of Care 102 mg/dl (70-99)
[2024-09-24] MEDS: NOVOLOG FLEXPEN-MODERATE RESISTANCE SC (07:50)
[2024-09-24] MEDS: PULMICORT 0.5 MG INH (08:00)
[2024-09-24] MEDS: DUONEB 3 ML INH (08:00)
[2024-09-24] MEDS: ASPIR LOW (ENTERIC COATED) 81 MG PO (08:32)
[2024-09-24] MEDS: PROTONIX 40 MG PO (08:32)
[2024-09-24] MEDS: DELTASONE 20 MG PO (08:32)
[2024-09-24] MEDS: COZAAR 100 MG PO (08:32)
[2024-09-24] MEDS: LANTUS 0.12 UNITS SC (08:33)
[2024-09-24] MEDS: DITROPAN 5 MG PO (08:33)
[2024-09-24 10:25] VITALS: BP 141/75; PULSE 92; O2SAT 100
--- NOTE | 2024-09-24 10:31 | CM ---
Addendum entered by Sharon Anthony 09/24/24 12:17:
IMM completed and signed form placed on chart. Patient declined VN supports. CM will continue to follow for discharge planning needs.
Plan;home with no needs. patient reports same O2 needs.
Original Note:
Patient seen at bedside today. Patient denied seeing PT yesterday and stated that she really wanted to see them today. CM sent TT to PT. CM will continue to follow for discharge planning needs.
Plan;home with VN vs SNF; watch for additional home O2 needs.
--- NOTE | 2024-09-24 11:02 | PN.CDI ---
CDI
- -
CDI:
Physician Documentation Request
Admit Date: 09/21/24 22:28
Dear Doctor Shana ,
Please review the following and provide your response in the progress notes.
Clinical Indicators:
Pt admitted with Sepsis 2/2 PNA/ Acute on Chronic Hypoxic Respiratory Failure /COPD exacerbation
Documented per pulmonology consult /note, ' , recurrent pneumonia with suspected chronic aspiration...'
Based on the above, could you clarify in the Progress Notes further specificity regarding the known, suspected or likely type of pneumonia you are treating (recognizing the specific organism may not be known)?
Examples
Aspiration Pneumonia - indicate substance such as food or vomitus, oils or other solids or liquids
Staph Pneumonia - indicate if MRSA or MSSA
Strep Pneumonia - indicate if strep B, strep pneumoniae or other type
Other organism - specify known or suspected type
Use of terms such as suspected, likely, concern for, or probable (associated with a specific diagnosis that is being evaluated, monitored, or treated as if it exists) are acceptable and can be coded in the inpatient setting, when documented at the
time of discharge.
Thank you,
Elle Thomas RN
CDI Specialist
[place] [employer]
Please use your independent medical judgment in providing your response.
[2024-09-24 11:03] VITALS: BP 112/62
--- NOTE | 2024-09-24 11:35 | W.DS.TRANS ---
DC Summary - Associate Store Manager
-
Discharge Instructions:
Discharge Diagnosis/Procedures Sepsis, pneumonia, COPD exacerbation
Diet Diabetic, Carb Controlled
Activity With assistance,As tolerated
Driving Restrictions No driving
Bathing Restrictions None
Instructions:
Stand-Alone Forms:
Changes to Home Medications: No
Discharge Medications:
DC Medications w/original date entered in [employer]
montelukast 10 mg tablet 10 mg PO QPM Allergies 10/29/15
multivitamin with folic acid 400 mcg tablet (Tab-A-Mariah) 1 tab PO DAILY Supplement 08/07/16
omeprazole 20 mg-sodium bicarbonate 1.1 gram capsule (Zegerid) 1 cap PO DAILY Gastrointestinal issue 08/07/16
losartan 50 mg tablet 100 mg PO DAILY Blood pressure 05/10/17
L.acidoph,paracasei,B.animalis 10 billion cell capsule 1 ea PO BID Supplement 07/01/19
aspirin 81 mg tablet,delayed release (Adult Aspirin Regimen) 81 mg PO DAILY Blood clot prevention/tx 07/01/19
benzonatate 100 mg capsule 100 mg PO TIDPRN PRN cough 07/01/19
budesonide 0.5 mg/2 mL suspension for nebulization (Pulmicort) 0.5 mg inhalation R BID Lung/breathing issues 11/06/20
calcium 250 mg (as phosphate)-vit D3 5 mcg (200 unit) chewable tablet 1 ea PO BID Supplement 11/06/20
hydrochlorothiazide 25 mg tablet 25 mg PO DAILY Blood pressure 11/07/20
umeclidinium 62.5 mcg/actuation blister powder for inhalation (Incruse Ellipta) 62.5 mcg inhalation R DAILY Lung/breathing issues 11/07/20
insulin aspart U-100 100 unit/mL (3 mL) subcutaneous pen (Novolog FlexPen U-100 Insulin aspart) 0 units SC AC 11/09/20
albuterol sulfate 90 mcg/actuation aerosol inhaler 1 puff inhalation R BID 09/22/24
gabapentin 100 mg capsule 100 mg PO DAILYPRN PRN leg pain/restless leg 09/22/24
insulin degludec 100 unit/mL (3 mL) subcutaneous pen (Tresiba FlexTouch U-100 insulin) 12 unit SC DAILY 09/22/24
oxybutynin chloride 15 mg tablet,extended release 24 hr 15 mg PO DAILY 09/22/24
amoxicillin 875 mg-potassium clavulanate 125 mg tablet 1 tab PO BID #8 tabs 09/24/24
prednisone 10 mg tablet 10 mg PO DAILY #21 tabs 09/24/24
Home Medication Changes
Pending Results: No
[2024-09-24 11:38] LABS: Glucose - Point of Care 207 mg/dl (70-99)
--- NOTE | 2024-09-24 11:42 | W.PN.PUL3 ---
Today's Communication / Plan
-
Transition to oral antibiotic regimen for right middle lobe pneumonia
Prednisone 20 mg for 7 days, 10 mg for 7 days then off
Resume outpatient nebulizer regimen, inhaler regimen
Patient instructed to take BiPAP mask and tubing home as she felt comfortable with that
She will attach this to her home BiPAP
Follow-up information left in chart
Assessment
-
Assessment: 78-year-old female non-smoker with a past medical history of asthma, recurrent pneumonia, hiatal hernia, history of DARIAN noncompliant with CPAP, ILD with bronchiectasis and patchy GGO, bilateral pulmonary nodules, history of laparoscopic
gastric banding s/p removal in November 2020 at [facility], personal history of COVID-19 (03/2022) s/p Paxlovid, GERD, DM type II, history of hayfever and hypertension who presents with shortness of breath and weakness. Patient was in her usual state of
health up until the morning of ER arrival and she had worsened shortness of breath, work of breathing and fatigue. She was not coughing although she did have generalized bodyaches. In the ER she was febrile to 100.7 �F, tachycardic to 115 bpm,
breathing at 18 breaths/min, BP 119/59 and saturating 96% on 3 L/min. Initial labs were significant for leukocytosis to 26, Hb 11.3, serum sodium 133, proBNP 449, COVID antigen negative and flu swab also negative. CXR showed a right lower lobe
opacification with concern for loculated small pleural effusion versus atelectasis. She was given Tylenol, Decadron, DuoNebs, ceftriaxone/Zithromax and IVF with 500 cc of NS 0.9%. She was admitted to the IMU and pulmonary service consulted for
additional management/recommendations.
Chronic conditions SEAMSTRESS FITTER: Moderate persistent asthma, recurrent pneumonia with suspected chronic aspiration, chronic rhinitis, DARIAN noncompliant with CPAP since July 2021, ILD with stable bronchiectasis and patchy GGO, history of laparoscopic
gastric banding s/p removal in November 2020 at [facility], personal history of COVID-19 (March 2022) s/p Paxlovid, GERD, DM type II on insulin, history of cervical cancer, hypertension, hayfever and left hand arthritis
#Acute respiratory failure with hypoxia due to CAP involving RML
#Acute asthma exacerbation due to above
#Leukocytosis
#Chronic anemia (has been anemic since 2007 with baseline Hb 9.5�11.5)
#DM type II c/b hyperglycemia
#Moderate sized hiatal hernia
#History of ILD with traction bronchiectasis and RML/RLL with bilateral patchy GGO
#Recurrent pneumonia with suspected chronic aspiration
#History of laparoscopic gastric banding s/p removal in November 2020 at [facility]
#Personal history of COVID-19 (03/2022) s/p Paxlovid
#GERD
#History of a fever
Plan/recommendations:
At this time, patient appears to be objectively and subjectively improved
Less tremulous today, less agitated
Tolerated BiPAP overnight with a new mask
CT chest consistent with right middle lobe pneumonia
Moving forward
Continue with ceftriaxone/azithromycin, transition to oral regimen
Continue with airway clearance
Do not feel she needs steroids, will transition to 20 mg prednisone and taper slowly over the next 7 to 14 days. Wean by 10 mg every 7 days until off
Follow-up cultures
Nebulized therapy for now
DuoNebs, budesonide. Can resume outpatient regimen at time of discharge
Encourage airway clearance
PT/OT, ambulate
Head of bed elevated, aspiration precautions
Patient was instructed to take home BiPAP mask and tubing as she felt much more comfortable with current mask
She can attach this to her home BiPAP
DVT ppx: LMWH
Disposition efforts noted
Patient will follow-up in the office in the next 3 to 4 weeks
Data:
CXR 09/21/2024:
Probable small loculated right pleural effusion. New. This would better be evaluated by chest CT examination if indicated clinically.
CT chest without contrast 09/22/2024:
There is a new consolidation and bronchiectasis within the right middle lobe favored to represent pneumonia. Recommend follow-up to ensure resolution.
There are multifocal areas of groundglass opacities as well as numerous scattered solid nodules which appear overall similar to prior.
Moderate compression deformity of the T6 vertebral body with 3 mm retropulsion, unchanged from prior.
Moderate hiatal hernia.
Subjective Data
-
Date of Service:
Date of Service: September 24, 2024
Subjective:
Patient feels subjectively improved. She has mild dry cough. Denies nausea, abdominal pain, diarrhea. She is sitting in the chair, appears to be comfortable
Objective Data
Data Reviewed
Vital Signs / I&O / Oxygen:
Vital Signs
Temp Pulse Resp BP Pulse Ox
98.0 F 107 18 112/62 98
09/24/24 11:03 09/24/24 11:03 09/24/24 11:03 09/24/24 11:03 09/24/24 11:03
Intake and Output
09/23/24 09/24/24 09/25/24
06:59 06:59 06:59
Intake Total 500 / 500 780 / 780
Output Total 700 / 700
Balance -200 / -200 780 / 780
SaO2 98
Nasal Cannula flow liters per 2
minute
Physical Exam
General: Comfortable
HEENT: Normocephalic and Anicteric
Cardiovascular: S1-S2, Regular Rhythm, Murmur (n) and Rub (n)
Respiratory: Wheeze (n), Crackles (few), Rhonchi (few), Non-Labored Respirations and Stridor (n)
GI: Soft, Non Distended and Non Tender
Neurology: Awake, Alert and No Motor Deficits
Skin: Cyanosis (n), Jaundice (n), Rash (n) and Bruising (few)
Labs/Micro/Reports
Lab Data
09/24/24 05:28
09/22/24 04:30
Microbiology
09/21/24 19:49 Blood/Venous Blood Culture - Preliminary
No Growth in 48 hours- Final report to follow
09/21/24 19:49 Blood/Venous Blood Culture - Preliminary
No Growth in 48 hours- Final report to follow
09/22/24 09:01 Sputum Respiratory Culture - Final
09/22/24 09:01 Sputum Gram Stain - Final
09/22/24 04:30 Urine Legionella Urinary Antigen - Final
Negative for Legionella pneumophila Serogroup 1 antigen.
A negative result does not rule out the possiblity of
Legionella infection due to other serogroups or species of
Legionella. Clinical correlation is recommended.
09/22/24 04:30 Urine Streptococcus pneumoniae Antigen (M - Final
Negative for Streptococcus pneumoniae antigen.
A negative result does not exclude infection with
Streptococcus pneumoniae. Clinical correlation is
recommended.
09/21/24 15:59 Nasal Swab Influenza Types A & B (BREN) - Final
Negative for Influenza A & B, NAAT
Negative results must be combined with clinical observations
and patient history.
Nucleic Acid Amplification test (NAAT)performed on the
[employer] platform.
[2024-09-24] MEDS: DUONEB INH ×2 (11:46→12:20)
[2024-09-24] MEDS: NOVOLOG FLEXPEN-MODERATE RESISTANCE 3 UNITS SC (11:54)
--- NOTE | 2024-09-24 12:41 | W.PN.HOSP.TC ---
Addendum entered and electronically signed by Priyank Saldana DO 09/24/24 13:54:
Community-acquired pneumonia due to unknown organism
Original Note:
Today's Communication/Plan
-
Discharge
Assessment / Plan
Assessment / Plan
Gen-AAOx3, NAD
HEENT-NC, AT, anicteric, clear oral mm
Neck-supple
CV-reg, no M, +S1/S2
Lungs-improving wheezing.
Abd-soft, NT, ND
Ext-no edema
Musculoskeletal-no cyanosis, clubbing, no effusion crepitus or tenderness over knees bilaterally
Skin-warm and dry
Neuro-grossly non-focal
Psych-calm, cooperative
Acute TME -likely due to sepsis, possible pneumonia. Mental status improving.
Sepsis due to community-acquired pneumonia -hemodynamically stable. Blood cultures negative. CT chest confirms consolidation and bronchiectasis in the right middle lobe representing pneumonia. Multifocal areas of ground glass opacities as well as
numerous scattered solid nodules which appear overall similar to prior.
Leukocytosis improving. Afebrile.
Acute on chronic hypoxic respiratory failure -baseline 3 L nasal cannula oxygen at home. She does not appear to use it consistently according to what she reports to me. Currently stable on 2 L. Etiology of acute respiratory failure likely due to
sepsis, pneumonia, COPD exacerbation.
Acute COPD exacerbation -suspect due to pneumonia. Continue nebs, oxygen, steroids. Continue Acapella, incentive spirometer. Wheezing improving.
Hyponatremia -present on admission. Resolved.
DM2 with hyperglycemia -steroid-induced hyperglycemia noted. Hemoglobin A1c 6.9% in August. At home she is on Tresiba 12 units daily, aspart insulin sliding scale.
In the hospital she is on glargine 12 units daily, moderate resistance NovoLog scale.
Glucose 102 this morning.
Chronic T6 compression deformity -likely due to underlying osteoporosis.
Essential hypertension -stable.
DARIAN
History of cervical cancer
Normocytic anemia -likely chronic. Follow-up as outpatient.
Obesity due to excess calories
Full code
Dispo - medically stable for discharge home today. Discussed with pulmonary service. Outpatient follow-up.
32 minutes spent in discharge process.
Anticipated Discharge: Today
Subjective/Interval History
-
Date of Service: September 24, 2024
Patient seen and examined. Overall feeling better. No complaints.
Objective Data
-
Labs:
Laboratory Results
09/24/24
05:28
WBC 20.1 H
Hgb 9.3 L
Hct 29.9 L
Plt Count 304
Vital Signs:
Vital Signs
Temp Pulse Resp BP Pulse Ox
98.0 F 107 18 112/62 98
09/24/24 11:03 09/24/24 11:03 09/24/24 11:03 09/24/24 11:03 09/24/24 11:03
I&O
09/23/24 09/24/24 09/25/24
06:59 06:59 06:59
Intake Total 500 / 500 780 / 780
Output Total 700 / 700
Balance -200 / -200 780 / 780
Review of Systems
-
History Source: Patient
All other systems: Reviewed and negative
== END 2024-09-24 13:42 | disposition home or self-care (01) | DRG 871 ==
LOC: 3 WEST ACU 22:28
PROVIDERS: Physician Assistant; ADMITTING PHYSICIAN Internal Medicine; ATTENDING PHYSICIAN Hospitalist; EMERGENCY PHYSICIAN Emergency Medicine; FAMILY PHYSICIAN Family Medicine; OTHER PHYSICIAN Internal Medicine Critical Care Medicine
DX: A41.89 Other specified sepsis (principal); G92.8 Other toxic encephalopathy; J18.9 Pneumonia, unspecified organism; J96.01 Acute respiratory failure with hypoxia; J44.1 Chronic obstructive pulmonary disease with (acute) exacerbation; J45.41 Moderate persistent asthma with (acute) exacerbation; E87.1 Hypo-osmolality and hyponatremia; I10 Essential (primary) hypertension; D64.9 Anemia, unspecified; E11.65 Type 2 diabetes mellitus with hyperglycemia; K21.9 Gastro-esophageal reflux disease without esophagitis
CPT/HCPCS: 71046; 71250; 80048; 80053; 82805; 82962; 83605; 83735; 83880; 85025; 85027; 87040; 87205; 87449; 87502; 87811; 87899; 93005; 94640; 94660; 96365; 96375; 97530; 99285

== ENCOUNTER → 2025-03-30 08:56 | Outpatient (REF) | payer MEDICARE, OTHER, SELFPAY ==
[2025-03-30 11:58] LABS: Hematocrit 35.3 % (37.0-47.0); Hemoglobin 10.9 g/dL (12.0-16.0); Mean Corp Hgb Conc. 30.9 g/dL (33.0-37.0); Mean Corpuscular Volume 84.9 fL (81.0-99.0); Nucleated Red Blood Cells % 0 %; Platelet Count 371 10^3/uL (130-400); Red Cell Dist. Width 14.8 % (11.5-14.5)
[2025-03-30 12:02] LABS: Urine Character Clear (Clear)
[2025-03-30 12:10] LABS: ALT (SGPT) < 10 U/L (0-35); AST (SGOT) 18 U/L (14-36); Albumin 3.7 g/dl (3.5-5.0); Alkaline Phosphatase 79 U/L (38-126); Blood Urea Nitrogen 22 mg/dl (7-17); Calcium 9.3 mg/dl (8.4-10.2); Carbon Dioxide 32 mmol/L (22-30); Chloride 102 mmol/L (98-107); Glucose 127 mg/dl (70-99); HDL Cholesterol 57 mg/dl; LDL Cholesterol, Calculated 86 mg/dl; Magnesium 2.0 mg/dl (1.6-2.3); Potassium 4.2 mmol/L (3.5-5.1); Sodium 139 mmol/L (135-145); Total Protein 7.5 g/dl (6.3-8.2); Urine Red Blood Cell 0-2 /HPF (0-2); Urine White Cell 0-2 /HPF (0-5); Very Low Density Lipoprotein 19 mg/dl (0-30); eGFR > 60.00
[2025-03-30 12:26] LABS: Microalb - Urine Creatinine 76.900 mg/dl; Vitamin D, 25-OH*** 52.6 ng/mL (30-80)
[2025-03-30 12:31] LABS: Microalbumin, Random Urine 1.3 mg/dl (0.6-1.7)
[2025-03-30 12:59] LABS: Vitamin B12 296 pg/ml (239-931)
[2025-03-30 14:21] LABS: Glycohemoglobin (HgbA1c) 6.8 % (4.0-5.6)
== END ==
LOC: HWLAB 08:56
PROVIDERS: ATTENDING PHYSICIAN Family Medicine; REFERRING PHYSICIAN Internal Medicine Endocrinology, Diabetes & Metabolism
DX: E11.9 Type 2 diabetes mellitus without complications (principal); J96.11 Chronic respiratory failure with hypoxia; R53.83 Other fatigue; I10 Essential (primary) hypertension; E11.59 Type 2 diabetes mellitus with other circulatory complications; N32.81 Overactive bladder; E55.9 Vitamin D deficiency, unspecified; E53.8 Deficiency of other specified B group vitamins
CPT/HCPCS: 36415; 80053; 80061; 81003; 81015; 82043; 82306; 82570; 82607; 83036; 83735; 84443; 85025; 87086